=== PATIENT | male | born 1975 | race American Indian/Alaskan Native ===

== ENCOUNTER 2016-10-21 11:45 | Observation (INO) | payer SELFPAY ==
--- NOTE | 2016-10-21 12:25 | C.PDOC ---
Time Seen by Provider: 10/21/16 12:04 Chief Complaint (Nursing): Psychiatric Evaluation Past Medical History Vital Signs: Last Vital Signs Temp 99.1 F 10/21/16 12:04 Pulse 104 H 10/21/16 12:04 Resp 20 10/21/16 12:04 BP 153/88 H 10/21/16 12:04 Pulse Ox 99 10/21/16 12:51 - Social History Hx Alcohol Use: No Hx Substance Use: No - Immunization History Hx Tetanus Toxoid Vaccination: No Hx Influenza Vaccination: No Hx Pneumococcal Vaccination: No ED Course And Treatment ECG: Interpreted By Me ECG Rhythm: Sinus Rhythm Rate From EC O2 Sat by Pulse Oximetry: 99 Pulse Ox Interpretation: Normal - Radiology CXR: Interpreted by Me CXR Interpretation: Yes: No Acute Disease Progress - Data Reviewed Data Reviewed: Lab, Diagnostic imaging, EKG, Old records ED OBSERVATION Date of observation admission: 10/21/16 Time of observation admission: 12:27 - Observation admission statement Patient is being placed in observation because:: ACUTE PSYCHOSIS; SUICIDAL; AGITATION - Goals of Observation Goals of observation are:: MED CLEAR; PSYCH EVAL
--- NOTE | 2016-10-21 12:48 | C.PDOC ---
History Of Present Illness <Isabelle Wilkins - Last Filed: 10/21/16 18:45> <Catraina Mercedes E - Last Filed: 10/22/16 02:42> 41-year-old male, PMHx includes Schizophrenia, compliant w/ medication, Hx as per , and friend (via allergist), patient is brought to the emergency department by EMS, with complaints of agitation, suicidal attempt, and psychotic behavior since 10/17. states pt has been trying to climb out of windows, and threatening to harm family members. unknown drug use. All other Hx limited due to clinical condition. (Franky,Isabelle) History Per: Patient History/Exam Limitations: no limitations <Isabelle Wilkins - Last Filed: 10/21/16 18:45> <Catarina Mercedes - Last Filed: 10/22/16 02:42> Time Seen by Provider: 10/21/16 12:04 Chief Complaint (Nursing): Psychiatric Evaluation Past Medical History Reviewed: Historical Data, Nursing Documentation, Vital Signs Family History: States: Unknown Family Hx - Social History Hx Alcohol Use: No Hx Substance Use: No - Immunization History Hx Tetanus Toxoid Vaccination: No Hx Influenza Vaccination: No Hx Pneumococcal Vaccination: No <Isabelle Wilkins - Last Filed: 10/21/16 18:45> Vital Signs: Last Vital Signs Temp 98.1 F 10/22/16 02:30 Pulse 76 10/22/16 02:30 Resp 16 10/22/16 02:30 BP 138/78 10/22/16 02:30 Pulse Ox 99 10/22/16 02:30 Review Of Systems Review Of Systems: ROS cannot be obtained secondary to pt's inabilty to answer questions. Psych: Positive for: Psychosis, Suicidal ideation <Isabelle Wilkins - Last Filed: 10/21/16 18:45> Physical Exam - Physical Exam Appears: Non-toxic, No Acute Distress, Other (ACTIVELY HALLUCINATING. TALKING TO HIMSELF. NOT MAKING SENSE) Skin: Warm, Dry, No Rash Head: Atraumatic, Normacephalic Eye(s): bilateral: Normal Inspection Nose: Normal Oral Mucosa: Moist Neck: Normal ROM Respiratory: No Accessory Muscle Use Extremity: Normal ROM <Isabelle Wilkins - Last Filed: 10/21/16 18:45> ED Course And Treatment - Laboratory Results Result Diagrams: 10/21/16 12:59 10/21/16 12:59 ECG: Interpreted By Me, Viewed By Me ECG Rhythm: Sinus Rhythm ECG Interpretation: No Acute Changes Rate From EC O2 Sat by Pulse Oximetry: 99 - Radiology CXR: Interpreted by Me, Viewed By Me CXR Interpretation: Yes: No Acute Disease <Isabelle Wilkins - Last Filed: 10/21/16 18:45> - Laboratory Results Result Diagrams: 10/21/16 12:59 10/21/16 12:59 Progress Note: Pt was signed out to me at 7pm by Dr. Wilkins as already medically cleared, [place] [facility] [place]. Pt was evaluated by screener and accepted for psychiatric commitment [place] [facility] <Catarina Mercedes E - Last Filed: 10/22/16 02:42> ED OBSERVATION Date of observation admission: 10/21/16 Time of observation admission: 12:27 <FrankyIsabelle - Last Filed: 10/21/16 18:45> <Catarina Mercedes E - Last Filed: 10/22/16 02:42> - Observation admission statement Patient is being placed in observation because:: ACUTE PSYCHOSIS; SUICIDAL; AGITATION (FrankyIsabelle) - Goals of Observation Goals of observation are:: MED CLEAR; PSYCH EVAL (FrankyIsabelle) - Progress Note Progress Note: 10/21/16 14:24 MED CLEAR FOR PSYCH. CRISIS ELIZABETH NOTIFIED. PT SEDATED, NAD, CALM. 10/21/16 16:54 [place]ING [facility] [place] 10/21/16 19:00 S/O DR MERCEDES FU CRISIS, DISPO (FrankyIsabelle) Disposition <FrankyIsabelle - Last Filed: 10/21/16 18:45> - Disposition Disposition Time: 02:42 <Catarina Mercedes E - Last Filed: 10/22/16 02:42> - Disposition Disposition: Trans to Other Acute Care Hosp Condition: STABLE - Clinical Impression Clinical Impression: Schizophrenia - Scribe Statement The provider has reviewed the documentation as recorded by the Scribe <FrankyIsabelle - Last Filed: 10/21/16 18:45> <Catarina Mercedes E - Last Filed: 10/22/16 02:42> - Scribe Statement [place] Daniel All medical record entries made by the Scribe were at my direction and personally dictated by me. I have reviewed the chart and agree that the record accurately reflects my personal performance of the history, physical exam, medical decision making, and the department course for this patient. I have also personally directed, reviewed, and agree with the discharge instructions and disposition. (Isabelle Wilkins)
[2016-10-21 13:10] LABS: BASO % 0.5 % (0.0-2.0); EOS % 0.2 % (0.0-4.0); HEMATOCRIT 42.5 % (35.0-51.0); LYMPH # 0.9 K/uL (1.0-4.3); LYMPH % 17.2 % (20.0-40.0); MEAN CELL VOLUME 83.9 fL (80.0-94.0); MEAN CORPUSCULAR HEMOGLOBIN 27.7 pg (27.0-31.0); MEAN PLATELET VOLUME 10.2 fL (7.2-11.7); MONO # 0.4 K/uL (0.0-0.8); MONO % 7.9 % (0.0-10.0); RED CELL DISTRIBUTION WIDTH 13.1 % (11.5-14.5); WHITE BLOOD COUNT 5.3 K/uL (4.8-10.8)
[2016-10-21 13:17] LABS: CHLORIDE 102 mmol/L (98-107); SODIUM 140 mmol/L (132-148)
[2016-10-21 13:19] LABS: GFR AFRICAN-AMERICAN > 60
[2016-10-21 13:20] LABS: ALB/GLOB RATIO 1.2 (1.0-2.1); ALKALINE PHOSPHATASE 53 U/L (38-126); ALT/SGPT 46 U/L (21-72); AST/SGOT 52 U/L (17-59); BILIRUBIN,TOTAL 0.7 mg/dL (0.2-1.3); BLOOD UREA NITROGEN 11 mg/dL (9-20); CARBON DIOXIDE 27 mmol/L (22-30); GLUCOSE,RANDOM 103 mg/dL (75-110); TOTAL PROTEIN 7.4 g/dL (6.3-8.3)
[2016-10-21 13:21] LABS: ALCOHOL SERUM < 10 mg/dl (0-10)
--- NOTE | 2016-10-21 13:26 | RAD ---
PROCEDURE: CHEST RADIOGRAPH, 1 VIEW HISTORY: PSYCHOSIS COMPARISON: None available. FINDINGS: LUNGS: Poor inspiration with low lung volumes and mild crowded bronchovascular markings as well as suspected mild bibasilar atelectasis. PLEURA: No pneumothorax or pleural fluid seen. CARDIOVASCULAR: Heart appears enlarged which may in part be due to low lung volumes as well. OSSEOUS STRUCTURES: No significant abnormalities. VISUALIZED UPPER ABDOMEN: Normal. OTHER FINDINGS: None. IMPRESSION: Poor inspiration, with low lung volumes, crowded bronchovascular markings and mild bibasilar atelectasis. Questionable cardiomegaly versus artifact related to low lung volumes
[2016-10-21 14:00] LABS: RBC URINE 4 /hpf (0-3); URINE BILIRUBIN NEGATIVE (NEGATIVE); URINE BLOOD NEGATIVE (NEGATIVE); URINE COLOR Yellow (YELLOW); URINE GLUCOSE (UA) NORMAL (Normal); URINE KETONE TRACE mg/dL (NEGATIVE); URINE LEUKOCYTE ESTERASE NEG Leu/uL (Negative); URINE PROTEIN 1+ mg/dL (NEGATIVE); URINE UROBILINOGEN NORMAL mg/dL (0.2-1.0); WBC URINE 2 /hpf (0-5)
--- NOTE | 2016-10-21 14:12 | PCM.PSYCH ---
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 Translation services were used as the family speaks only Yoruba. Patient was a poor historian and remained disorganized and internally preoccupied throughout the interview. As per the , 5 days ago on Tuesday, patient consumed a cup of tea at his sisters place. When he woke up, he became very disorganized and internally preoccupied and started talking to himself. He started singing and started yelling and cursing to an imaginary person. He started eating from the garbage. Since then he is getting worse, yesterday he made a suicidal statement to kill himself and tried to jump off the window, she became concerned & she escorted him to the ED to get help. Patient was very disorganized and internally preoccupied. He was irritable and agitated at the ED, so he was given i/m medications and he was put on restraints. denies any past history of any psychotic episode. She denies any past history of any mental disorder and denies any past history of auditory or visual hallucinations. She denies any past history of any substance abuse. She also denies any past history of suicidal ideation or homicidal ideation. Past Psychiatric History - Past Psychiatric History Previous Treatment History: None Pertinent Medical Hx (Current Medical&Sleep Prob, Allergies): Allergies Allergy/AdvReac Type Severity Reaction Status Date / Time No Known Allergies Allergy Verified 10/21/16 12:11 Benztropine [Benztropine Mesylate] 1 mg PO DAILY 10/21/16 Lactulose 10 gm PO DAILY 10/21/16 Sertraline HCl 50 mg PO DAILY 10/21/16 risperiDONE [RisperDAL Tab] 1 mg PO DAILY 10/21/16 Review of Systems - Review of Systems All systems: reviewed and no additional remarkable complaints except - Psychiatric Psychiatric: Anxiety, Auditory Hallucinations, Irritability, Paranoia, Suicidal Ideation, Visual Hallucinations Mental Status Examination - Personal Presentation Personal Presentation: Looks stated age - Affect Affect: Broad - Motor Activity Motor Activity: Psychomotor Agitation - Reliability in Providing Information Reliability in Providing Information: Poor, due to alteration in thoughts, Poor , due to altered mood - Speech Speech: Disorganized - Mood Mood: Anxious - Formal Thought Process Formal Thought Process: Hallucinations, Delusions, Paranoia, Loosening of associations - Hallucinations/Delusions Hallucinations: Visual, Auditory Delusions: Persecution - Obsessions/Compulsions Obsessions: No Compulsions: No - Cognitive Functions Orientation: Person, Place, Situation, Time Sensorium: Alert Attention/Concentration: Attentive Abstract Thinking: [place] Estimate of Intelligence: Below average Judgement: Imparied, as evidence by: Poor judgement, Imparied, as evidence by: Lack of insight into illness - Risk Risk: Suicidal, Diminished functioning, Other (Disorganized) - Strength & Assets Inventory Strength & Assets Inventory: Family support DSM 5 DX - DSM 5 DSM 5 Diagnosis: Brief psychotic disorder - Recommended/Plan of Treatment Treatment Recommendations and Plan of Treatment: Brief psychotic disorder CBT Psychoeducation Start Haldol 5 mg by mouth twice a day Start Cogentin 1 mg by mouth twice a day Start Klonopin 0.5 mg by mouth twice a day Patient needs [place] [facility] [place]. - Smoking Cessation Smoking Cessation Initiated: No
[2016-10-21 15:01] VITALS: O2SAT 99
[2016-10-22 02:31] VITALS: BP 138/78; PULSE 76; RESP 16; TEMP 98.1
== END 2016-10-22 03:37 | disposition home or self-care (01) ==
LOC: C.ER 11:45 → C.9OBSV 12:27
PROVIDERS: ADMIT Emergency Medicine; ATTEND Emergency Medicine
DX: F20.9 Schizophrenia, unspecified (principal); Z68.23 Body mass index [BMI] 23.0-23.9, adult
CPT/HCPCS: 71010; 80053; 81001; 85025; 96372; 99284; G0378; G0480; J1630